=== PATIENT | female | born 1970 | race African-American/Black ===

== ENCOUNTER 2019-07-06 08:11 | Day surgery (SDC) | payer OTHER ==
[2019-07-06 09:16] VITALS: BMI 32.3
[2019-07-06] MEDS ORDERED: LIDOCAINE HCL 1%, 10 MG/ML (20ML VIAL) ONE (11:34)
[2019-07-06] MEDS ORDERED: PROPOFOL 20 ML ONE ×2 (11:58→12:19)
[2019-07-06] MEDS ORDERED: MIDAZOLAM HCL 2 MG/2 ML SINGLE DOSE VIAL ONE (11:58)
[2019-07-06] MEDS ORDERED: LIDOCAINE HCL/PF 2% SDV 5ML VIAL ONE (12:06)
[2019-07-06] MEDS ORDERED: ceFAZolin SODIUM 1 GM VIAL ONE (12:08)
[2019-07-06] MEDS ORDERED: ceFAZolin SODIUM 1 GM VIAL IVPB ONE (12:08)
[2019-07-06] MEDS ORDERED: LIDOCAINE HCL 1%, 10 MG/ML (20ML VIAL) INF ONE (12:33)
[2019-07-06] MEDS ORDERED: PROMETHAZINE HCL 25 MG/1 ML VIAL IVPUSH PRN (12:49)
[2019-07-06] MEDS ORDERED: ONDANSETRON 4 MG/2 ML VIAL IVPUSH PRN (12:49)
[2019-07-06] MEDS ORDERED: oxyCODONE HCL 5 MG TABLET PO PRN (12:49)
[2019-07-06] MEDS ORDERED: LACTATED RINGERS SOLUTION 1,000 ML IV SCH (13:00)
--- NOTE | 2019-07-06 14:37 | OP ---
DATE OF OPERATION: 07/06/2019 PREOPERATIVE DIAGNOSIS: Left breast atypia. POSTOPERATIVE DIAGNOSIS: Left breast atypia. PROCEDURE: A left breast wire-localized lumpectomy. SURGEON: Maria Teresa Dwyer MD ANESTHESIA: Local and IV sedation. ESTIMATED BLOOD LOSS: Minimal. COMPLICATIONS: None. This is a sterile procedure. INDICATIONS FOR PROCEDURE: Patient presented with a screening mammogram that noted calcifications in the inner left breast. She had a stereotactic needle biopsy by radiologist that revealed atypia and my recommendation was an excision of the area to make sure there is no further upgrade in the lesion. The procedure of left breast wire-localized lumpectomy under local and IV sedation was discussed and all their questions answered. PROCEDURE IN DETAIL: The patient was first taken to Breast Imaging where a wire was used to localize a clip in the upper inner left breast and then brought to the operating room. After IV sedation and IV antibiotics, the left breast was prepped and draped in the usual sterile fashion. The upper inner left breast was anesthetized with 1% lidocaine without epinephrine. A radial incision was made in the left breast 10-11 o'clock location. A wire was used as a guide to get down to the area of interest. This was excised en bloc, tagged with a long stitch lateral, short stitch superior, sent for specimen radiograph. Hemostasis was assured with electrocautery. The parenchyma was approximated with 2-0 Vicryl. Skin approximated with interrupted 3-0 Vicryl and running 4-0 Prolene. A sterile dressing with Tegaderm and 4 x 4's applied. Specimen radiograph showed the clip and the wire to be intact within the specimen. This was sent to Pathology for permanent section. She tolerated procedure well, was taken to recovery in good condition. MARIA TERESA DWYER M.D. [id number]
[2019-07-06 14:55] VITALS: TEMP 97.5
[2019-07-06 15:23] VITALS: BP 145/99; PULSE 86
--- NOTE | 2019-07-11 10:58 | PATH ---
Surgical Pathology Report Patient Name: SD CASSIDY [facility]. Rec. #: [id number] /Age/Gender: 1970 (Age: 48) / F Account: [id number] Location: [facility] SURGICAL Taken: 07/06/2019 Received: 07/06/2019 Reported: 07/11/2019 Physicians: Maria Teresa Warren M.D. Specimen(s) Received LEFT BREAST LUMPECTOMY Clinical History None given Final Diagnosis BREAST, LEFT, LUMPECTOMY: DUCTAL CARCINOMA IN SITU (DCIS), CRIBRIFORM, FLAT AND MICROPAPILLARY TYPES, INTERMEDIATE NUCLEAR GRADE, WITH MODERATE NECROSIS AND ASSOCIATED MICROCALCIFICATIONS, PRESENT IN FOUR OF SIXTEEN SLIDES (4/16). DCIS SPANS UP TO 1.1 CM IN GREATEST MICROSCOPIC DIMENSION. SURGICAL MARGINS ARE UNINVOLVED BY CARCINOMA; CARCINOMA IS <1 MM FROM CLOSEST DEEP AND SUPERIOR MARGINS. PRIOR BIOPSY SITE CHANGES PRESENT. FLAT EPITHELIAL ATYPIA (FEA) IN A BACKGROUND OF FIBROCYSTIC CHANGES INCLUDING STROMAL FIBROSIS, MICROCYSTS, SCLEROSING ADENOSIS, APOCRINE METAPLASIA, COLUMNAR CELL CHANGES, USUAL DUCTAL HYPERPLASIA, AND ASSOCIATED MICROCALCIFICATIONS. PATHOLOGIC STAGE (pTNM): pTis pNx. SEE CASE SUMMARY BELOW. Comment: Case seen in intradepartmental review with consensus on diagnosis. Findings discussed with Dr. Warren, 07/10/19. Comments DCIS of the Breast: Surgical Pathology Cancer Case Summary (Based on AJCC TNM 8 th edition) Procedure _X_ Excision (less than total mastectomy) Specimen Laterality _X_ Left Size (Extent) of DCIS Estimated size (extent) of DCIS (greatest dimension using gross and microscopic evaluation): at least (millimeters) 11 mm Number of blocks with DCIS: 4 Number of blocks examined: 16 Histologic Type _X_ Ductal carcinoma in situ Architectural Patterns _X_ Cribriform _X_ Micropapillary _X_ Other (specify): Flat Nuclear Grade _X_ Grade II (intermediate) Necrosis _X_ Present, moderate Margins _X_ Uninvolved by DCIS Distance from closest margin (millimeters): <1 mm Specify closest margin: Superior and deep Regional Lymph Nodes _X_ No lymph nodes submitted or found Pathologic Stage Classification (pTNM, AJCC 8th Edition) Primary Tumor (pT) _X_ pTis (DCIS): Ductal carcinoma in situ Microcalcifications _X_ Present in DCIS _X_ Present in nonneoplastic tissue Biomarker studies Results of Estrogen Receptor (ER) and Progesterone Receptor (IN) studies performed on block "2" at [facility] are as follows: ER (clone [id number] mouse monoclonal antibody by [employer]): ~70% nuclear staining with moderate to strong intensity (Positive). IN (clone16 mouse monoclonal antibody by [employer]): ~70% nuclear staining with moderate to strong intensity (Positive). Positive and negative controls (internal if applicable) show appropriate results. Formalin fixation and cold ischemic times are within current ASCO/CAP recommendations for ER, IN and Her2 testing. Electronically Signed Ary Deshpande M.D. Gross Description Received fresh on an AccuGrid, labeled "left breast lumpectomy," is a 5.8 x 4.5 x 2.0 cm. trejo-yellow, irregular, portion of fibroadipose tissue with a needle localization wire present. There is a short suture marking the superior aspect and a long suture marking the lateral aspect, per the surgeon. There is no skin or nipple present. The specimen is inked as follows: Superior blue; inferior green; anterior and lateral red; medial yellow; deep black. The specimen is serially sectioned from anterior to deep. Sectioning reveals a previous biopsy site surrounded by fibrous tissue abutting the deep margin. There is a rock metallic biopsy clip identified at the deep margin. The remaining breast parenchyma displays multifocal white fibrous tissue. No definitive mass is identified. Hand Suture Winder sections are submitted in 16 cassettes as follows: 2-0-nquujwst biopsy site with deep margin; 6-35-frjbgpm tissue sequentially submitted from anterior to deep (one bisected section each in cassettes 4/5, 6/7, 8/9, 10/11, 12/13, 14/15); 16-anterior margin. Time to formalin fixation: 62 minutes Total formalin fixation time: Approximately 6 hours. 07/06/2019 vicente07/06/2019
== END 2019-07-06 15:15 | disposition home or self-care (01) ==
LOC: JASU-SURG 08:11
PROVIDERS: ATTEND Surgery
PROC: 0HBU0ZZ Excision of Left Breast, Open Approach (ICD-10-PCS; principal; 2019-07-06 11:00)
DX: D05.12 Intraductal carcinoma in situ of left breast (principal); N60.12 Diffuse cystic mastopathy of left breast; N60.22 Fibroadenosis of left breast; N60.32 Fibrosclerosis of left breast
CPT/HCPCS: 19281; 76098-TC-FY; 84703; 88307-TC; 88342-TC; 94760

== ENCOUNTER 2021-03-18 04:58 | Day surgery (SDC) | payer OTHER ==
[2021-03-16 11:40] VITALS: BMI 31.6
[2021-03-18] MEDS ORDERED: LIDOCAINE HCL 1%, 10 MG/ML (20ML VIAL) ONE (08:05)
[2021-03-18] MEDS ORDERED: LIDOCAINE HCL/PF 2% SDV 5ML VIAL ONE ×2 (09:31→09:38)
[2021-03-18] MEDS ORDERED: DEXAMETHASONE SOD PHOSPHATE 4 MG/1 ML VIAL ONE (09:31)
[2021-03-18] MEDS ORDERED: PROPOFOL 20 ML ONE ×2 (09:32)
[2021-03-18] MEDS ORDERED: MIDAZOLAM HCL 2 MG/2 ML SINGLE DOSE VIAL ONE (09:32)
[2021-03-18] MEDS ORDERED: SUCCINYLCHOLINE CHLORIDE 200 MG/10 ML SYRINGE ONE (09:35)
[2021-03-18] MEDS ORDERED: GLYCOPYRROLATE 0.2 MG/1 ML VIAL ONE (09:36)
[2021-03-18] MEDS ORDERED: ceFAZolin SODIUM 1 GM VIAL IVPB ONE (11:01)
[2021-03-18] MEDS ORDERED: ceFAZolin SODIUM 1 GM VIAL ONE (11:03)
[2021-03-18] MEDS ORDERED: GENTAMICIN SO4 80 MG/2 ML VIAL IVPB ONE (11:11)
[2021-03-18] MEDS ORDERED: LIDOCAINE HCL 1%, 10 MG/ML (20ML VIAL) NR ONE (11:11)
[2021-03-18] MEDS ORDERED: GENTAMICIN SO4 80 MG/2 ML VIAL ONE (11:15)
[2021-03-18] MEDS ORDERED: BACITRACIN 15 GM TUBE TOPICAL OINTMENT TP ONE (11:27)
[2021-03-18] MEDS ORDERED: ONDANSETRON 4 MG/2 ML VIAL IVPUSH PRN (11:53)
[2021-03-18] MEDS ORDERED: oxyCODONE HCL 5 MG TABLET PO PRN (11:53)
[2021-03-18 13:55] VITALS: BP 126/79; PULSE 61; TEMP 96.9
== END 2021-03-18 13:20 | disposition home or self-care (01) ==
LOC: JASU-SURG 04:58
PROVIDERS: ATTEND Surgery
PROC: 0HBU0ZX Excision of Left Breast, Open Approach, Diagnostic (ICD-10-PCS; principal; 2021-03-18 10:00)
DX: D24.2 Benign neoplasm of left breast (principal); E11.9 Type 2 diabetes mellitus without complications; I10 Essential (primary) hypertension; Z79.84 Long term (current) use of oral hypoglycemic drugs
CPT/HCPCS: 81025; 87070; 87075; 87186; 87205; 88307-TC; 88312-TC; 94760